=== PATIENT | male | born 1965 | race Hispanic/Latino ===

== ENCOUNTER 2017-08-20 22:47 | Emergency (ER) | payer SELFPAY ==
[~2017-08-20] VITALS: Ht 170.2 cm; Wt 70.0 kg
[2017-08-20] MEDS ORDERED: METFORMIN500 MG PO (23:00)
[2017-08-20 23:32] LABS: HEMATOCRIT 43.5 % (39.0-50.0); HEMOGLOBIN 16.1 g/dl (14.0-18.0); IMMATURE GRANULOCYTES 0.3 % (0.0-1.0); MEAN CELL VOLUME 95.4 fL CALC (80.0-100.0); MEAN CORPUSCULAR HGB 35.3 pG CALC (26.0-32.0); NEUT# 3.16 thou/uL (1.82-7.42); RED BLOOD COUNT 4.56 mill/uL (4.70-6.10)
[2017-08-20 23:45] LABS: ALBUMIN 4.3 g/dL (3.2-5.0); ALKALINE PHOSPHATASE 233 u/l (38-126); AMYLASE 54 u/l (30-110); ANION GAP 15 (6-22 (CALC)); BILIRUBIN, TOTAL 1.6 mg/dL (0.0-1.4); BUN 12 mg/dL (9-20); BUN/CREATININE RATIO 17 (12-20 (CALC)); CARBON DIOXIDE 29 mmol/l (22-30); CHLORIDE 94 mmol/l (95-108); CREATININE 0.7 mg/dL (0.7-1.3); GFR > 60 ML/MIN (>=60 (CALC)); GFR FOR AFR.AMER. > 60 ML/MIN (>=60 (CALC)); LIPASE 230 u/l (23-300); POTASSIUM 3.7 mmol/l (3.5-5.1); SGOT/AST 649 u/l (17-59); SGPT/ALT 157 u/l (21-72); SODIUM 134 mmol/l (137-146); TOTAL PROTEIN 7.6 g/dL (6.3-8.2)
[2017-08-20 23:46] LABS: ETHYL ALCOHOL < 10 mg/dl (0-30)
[2017-08-21 01:41] LABS: URINE BILIRUBIN - DIPSTICK NEGATIVE (NEGATIVE); URINE BLOOD DIPSTICK TRACE-INTACT (NEGATIVE); URINE CLARITY CLEAR; URINE COLOR YELLOW; URINE GLUCOSE - DIPSTICK >=1000 mg/dL (NEGATIVE); URINE KETONE TRACE mg/dL (NEGATIVE); URINE LEUK ESTERASE NEGATIVE (NEGATIVE); URINE NITRITE - DIPSTICK NEGATIVE (Negative); URINE PROTEIN - DIPSTICK 30 mg/dL (NEG-TRACE); URINE SPECIFIC GRAVITY <=1.005; URINE UROBILINOGEN - DIPSTICK 0.2 E.U./dL (0.2)
[2017-08-21 01:44] LABS: BARBITURATES NEGATIVE (NEGATIVE); COCAINE POSITIVE (NEGATIVE); METHADONE NEGATIVE (NEGATIVE); OXCYCODONE NEGATIVE (NEGATIVE); TETRAHYDROCANNABIONOL NEGATIVE (NEGATIVE); TRICYLIC ANTIDEPRESSANTS NEGATIVE (NEGATIVE)
[2017-08-21 01:47] LABS: URINE RBC 0-2 RBC/hpf (0-5); URINE SQUAMOUS EPITHELIAL CELL FEW EPI/hpf (0-FEW)
[2017-08-21 01:48] LABS: URINE BACTERIA FEW hpf; URINE FINE GRAN CAST FEW lpf; URINE TRANSITIONAL EPI. CELLS FEW hpf
[2017-08-21] MEDS ORDERED: PROTONIX40 MG PO (02:27)
[2017-08-21 03:33] VITALS: BP 112/59
== END 2017-08-21 03:33 | disposition home or self-care (01) | DRG 392 ==
LOC: ED 22:47
PROVIDERS: Family Medicine
DX: K29.20 Alcoholic gastritis without bleeding (principal); K70.10 Alcoholic hepatitis without ascites; F14.90 Cocaine use, unspecified, uncomplicated; F17.210 Nicotine dependence, cigarettes, uncomplicated
CPT/HCPCS: S0164

== ENCOUNTER 2018-08-10 17:23 | Inpatient (IN) | payer SELFPAY ==
[~2018-08-10] VITALS: Ht 170.2 cm; Wt 61.7 kg
[~2018-08-10 17:23] MED LIST: METFORMIN500 MG PO; PROTONIX40 MG PO
--- NOTE | 2018-08-10 17:28 | NUR ---
AMBULATORY TO ER ROOM 14, TO BE
--- NOTE | 2018-08-10 17:45 | NUR ---
PT STATES HAVING ABDOMINAL PAIN THAT BEGAN THIS MORNING. VOMITED MULTIPLE TIMES. PT IS AOX4. DENIES ANY C/P, SOB, OR WEAKNESS.
[2018-08-10 17:50] LABS: HEMATOCRIT 42.6 % (39.0-50.0); HEMOGLOBIN 15.9 g/dl (14.0-18.0); IMMATURE GRANULOCYTES 0.5 % (0.0-5.0); MEAN CORPUSCULAR HGB 34.3 pG CALC (26.0-32.0); MEAN CORPUSCULAR HGB CONC 37.3 g/L CALC (32.0-36.0); NEUT# 9.08 thou/uL (1.82-7.42); RED BLOOD COUNT 4.63 mill/uL (4.70-6.10); RED CELL DISTRI WIDTH 11.6 % (11.5-15.5)
[2018-08-10 18:10] LABS: ALBUMIN 4.2 g/dL (3.2-5.0); ALKALINE PHOSPHATASE 313 u/l (38-126); AMYLASE 107 u/l (30-110); BUN 19 mg/dL (9-20); BUN/CREATININE RATIO 22 (12-20 (CALC)); CHLORIDE 90 mmol/l (95-108); CREATININE 0.9 mg/dL (0.7-1.3); GFR > 60 ML/MIN (>=60 (CALC)); GFR FOR AFR.AMER. > 60 ML/MIN (>=60 (CALC)); LIPASE 1071 u/l (23-300); SGOT/AST 336 u/l (17-59); SODIUM 133 mmol/l (137-146); TOTAL PROTEIN 7.4 g/dL (6.3-8.2)
[2018-08-10 18:11] LABS: ANION GAP 26 (6-22 (CALC)); BILIRUBIN, TOTAL 2.5 mg/dL (0.0-1.4); CARBON DIOXIDE 21 mmol/l (22-30)
--- NOTE | 2018-08-10 18:43 | NUR ---
REPORT GIVEN TO EDEL KIMBROUGH
[2018-08-10 19:00] LABS: MYOGLOBIN 55 ng/mL (0 - 121)
--- NOTE | 2018-08-10 21:00 | NUR ---
Admission Note Report Given to: ODALYS Transported by: X Wheelchair Stretcher Transported with: X Nurse Transporter X Patent IV O2 Tail Board Worker
--- NOTE | 2018-08-10 21:05 | NUR ---
PT ARRIVED TO [facility] VIA WHEELCHAIR ACCOMPANIED BY ED TASK NURSE, PT ALERT AND ORIENTED X3, EMIRATI SPEAKING ONLY, PT STATES HE UNDERSTANDS SOME ICELANDIC. ORIENTED TO ROOM AND CALL LIGHT, DISCUSSED POC AND NPO STATUS, PT VERBALIZED UNDERSTANDING. IVF INITIATED. VITALS OBTAINED. PT STATES HE TAKES METFORMIN 850MG BID AND CAPTOPRIL UNSURE OF DOSE, PT RECEIVES MEDS FROM [facility]. RECENTLY RETURNED FROM [facility] FOR A 2 WEEKS AGO. ADMISSION ASSESSMENT COMPLETED. CALL LIGHT IN REACH,CONTINUE TO MONITOR.
--- NOTE | 2018-08-10 21:05 | NUR ---
SPOKE WITH ED NURSE REGARDING LACTIC 7.6, QUESTIONED IF SEPSIS WORKUP WAS COMPLETED. PER ED NURSE EDEL, ER MD IS AWARE AND NO ORDERS FOR ANTIBIOTICS WERE OBTAINED OR BLOOD CULTURES.
--- NOTE | 2018-08-10 21:10 | NUR ---
CONTACTED DR. VEGA TO CLARIFY PAIN LEVELS FOR MEDS.
[2018-08-10 21:18] VITALS: BP 154/94
--- NOTE | 2018-08-10 22:26 | NUR ---
PT RESTING IN BED, STATES HE IS NAUSEAOUS BUT CANT THROW UP. MEDICATED FOR PAIN AND ZOFRAN. ENCOUAGED PT TO CALL FOR ASSISTANCE SINCE HE IS A FALL RISK VERBALIZED UNDERSTANDING. CALL LIGHT IN REACH,CONTINUE TO MONITOR.
[2018-08-10 23:45] VITALS: BP 161/91
--- NOTE | 2018-08-11 03:05 | NUR ---
PT RESTING IN BED, NEW IV BAG INITIATED. PT C/O PAIN. WANTS TO TRY LORTAB INSTEAD. CALL LIGHT IN REACH,CONTINUE TO MONITOR.
--- NOTE | 2018-08-11 04:52 | NUR ---
PT SITTING UP IN CHAIR AT BEDSIDE, C/O NAUSEA AND PAIN, PT MEDICATE CALL LIGHT IN REACH,CONTINUE TO MONITOR.
--- NOTE | 2018-08-11 05:38 | NUR ---
PT BP ELEVATED 167/102 ER MD NOTIFIED, ORDERS RECEIVED.
[2018-08-11 05:55] LABS: HEMATOCRIT 40.7 % (39.0-50.0); MEAN CELL VOLUME 93.1 fL CALC (80.0-100.0); MEAN CORPUSCULAR HGB 34.3 pG CALC (26.0-32.0); MEAN CORPUSCULAR HGB CONC 36.9 g/L CALC (32.0-36.0); RED BLOOD COUNT 4.37 mill/uL (4.70-6.10); RED CELL DISTRI WIDTH 11.5 % (11.5-15.5)
[2018-08-11 06:00] LABS: ALKALINE PHOSPHATASE 254 u/l (38-126); AMYLASE 391 u/l (30-110); ANION GAP 15 (6-22 (CALC)); BUN 17 mg/dL (9-20); BUN/CREATININE RATIO 32 (12-20 (CALC)); CARBON DIOXIDE 25 mmol/l (22-30); CHLORIDE 99 mmol/l (95-108); CREATININE 0.5 mg/dL (0.7-1.3); GFR > 60 ML/MIN (>=60 (CALC)); GFR FOR AFR.AMER. > 60 ML/MIN (>=60 (CALC)); POTASSIUM 3.9 mmol/l (3.5-5.1); SGOT/AST 185 u/l (17-59); SODIUM 135 mmol/l (137-146); TOTAL PROTEIN 6.1 g/dL (6.3-8.2)
[2018-08-11 06:09] LABS: ALBUMIN 3.2 g/dL (3.2-5.0); BILIRUBIN, TOTAL 6.5 mg/dL (0.0-1.4)
[2018-08-11 06:10] LABS: LIPASE 5767 u/l (23-300)
[2018-08-11 06:52] VITALS: BP 162/99
--- NOTE | 2018-08-11 07:00 | NUR ---
SHIFT CHANGE REPORT, PT AWAKE ALERT AND ORIENTED, C/O ABD PAIN AND STATES ITS TOLERABLE AND DOES NOT WANT ANY PAIN MED AT THIS TIME, IVF INFUSING, REQUESTING ORAL INTAKE AND ADVISED MD WILL ADDRESS NEEDS LATER, ALSO INFORMED OF REASON HE HAS NPO STATUS AND STATED UNDERSTANDING, CALL RINCON IN REACH,WILL CONTINUE TO MONITOR.
[2018-08-11 09:51] VITALS: BP 153/99
--- NOTE | 2018-08-11 11:00 | NUR ---
DR DIALLO ROUNDED, DISCUSSED PLAN OF CARE AND WROTE ORDERS. TELE MONOTOR ORDERED AND PLACED, PT INFORMED/EDUCATED ON NEED FOR MONITOR AND STATED UNDERSTANDING VIA SENIOR ELECTRONICS DESIGN ENGINEER. ALL NEEDS ADDRESSED.
[2018-08-11 12:10] VITALS: BP 173/95
[2018-08-11 15:46] VITALS: BP 126/83
[2018-08-11 16:19] LABS: URINE BLOOD DIPSTICK NEGATIVE (NEGATIVE); URINE GLUCOSE - DIPSTICK 500 mg/dL (NEGATIVE); URINE KETONE >=80 mg/dL (NEGATIVE); URINE LEUK ESTERASE NEGATIVE (NEGATIVE); URINE PROTEIN - DIPSTICK 30 mg/dL (NEG-TRACE); URINE SPECIFIC GRAVITY 1.015
[2018-08-11 16:39] LABS: URINE BILIRUBIN - DIPSTICK LARGE (NEGATIVE)
[2018-08-11 16:40] LABS: URINE COLOR ORANGE; URINE NITRITE - DIPSTICK NEGATIVE (Negative); URINE SQUAMOUS EPITHELIAL CELL FEW EPI/hpf (0-FEW)
[2018-08-11 17:07] LABS: BARBITURATES NEGATIVE (NEGATIVE); COCAINE NEGATIVE (NEGATIVE); METHADONE NEGATIVE (NEGATIVE); OXCYCODONE NEGATIVE (NEGATIVE); TETRAHYDROCANNABIONOL NEGATIVE (NEGATIVE); TRICYLIC ANTIDEPRESSANTS NEGATIVE (NEGATIVE)
[2018-08-11 19:00] VITALS: BP 153/92
--- NOTE | 2018-08-11 19:31 | NUR ---
REPORT FROM AURORA KIMBROUGH. PT SITTING UP IN BED. ALERT AND ORIENTED. NO S/S OF DISTRESS NOTED. PT DENIES ANY PAIN OR DISCOMFORT. RESPIRATIONS EVEN AND UNLABORED. PT REMAINS NPO AT THIS TIME. BRIGHT ORANGE URINE NOTED IN URINAL. IV FLUIDS INFUSING WITHOUT DIFFICULTY. IV SITE APPEARS HEALTHY. DISCUSSED POC. PT VERBALIZED UNDERSTANDING. ENCOURAGED PT TO CALL FOR NEEDS. CALL LIGHT WITHIN REACH. WILL CONTINUE TO MONITOR.
--- NOTE | 2018-08-11 23:45 | NUR ---
STARTED PT IV FLUIDS PER EMAR ORDERS
[2018-08-12] VITALS (7 sets, daily range): BP systolic 131–171; BP diastolic 83–93
--- NOTE | 2018-08-12 04:18 | NUR ---
PT RESTING IN BED WITH EYES CLOSED. NO DISTRESS NOTED. WAKES EASILY. VOICES NO CONCERNS. IV FLUIDS INFUSING WITHOUT DIFFICULTY. CALL LIGHT WITHIN REACH. WILL CONTINUE TO MONITOR.
[2018-08-12 05:58] LABS: HEMATOCRIT 35.9 % (39.0-50.0); IMMATURE GRANULOCYTES 0.5 % (0.0-5.0); MEAN CELL VOLUME 95.5 fL CALC (80.0-100.0); MEAN CORPUSCULAR HGB 34.6 pG CALC (26.0-32.0); MEAN CORPUSCULAR HGB CONC 36.2 g/L CALC (32.0-36.0); NEUT# 6.47 thou/uL (1.82-7.42); RED BLOOD COUNT 3.76 mill/uL (4.70-6.10); RED CELL DISTRI WIDTH 11.7 % (11.5-15.5)
[2018-08-12 06:09] LABS: ALBUMIN 2.6 g/dL (3.2-5.0); ALKALINE PHOSPHATASE 164 u/l (38-126); AMYLASE 294 u/l (30-110); ANION GAP 13 (6-22 (CALC)); BUN 11 mg/dL (9-20); BUN/CREATININE RATIO 22 (12-20 (CALC)); CARBON DIOXIDE 26 mmol/l (22-30); CHLORIDE 100 mmol/l (95-108); CREATININE 0.5 mg/dL (0.7-1.3); GFR > 60 ML/MIN (>=60 (CALC)); GFR FOR AFR.AMER. > 60 ML/MIN (>=60 (CALC)); LIPASE 1883 u/l (23-300); MAGNESIUM 1.6 mg/dL (1.6-2.3); POTASSIUM 3.6 mmol/l (3.5-5.1); SGOT/AST 81 u/l (17-59); SODIUM 135 mmol/l (137-146); TOTAL PROTEIN 5.2 g/dL (6.3-8.2)
[2018-08-12 06:16] LABS: BILIRUBIN, TOTAL 3.2 mg/dL (0.0-1.4)
--- NOTE | 2018-08-12 06:33 | NUR ---
PT MEDICATE ORDERS SCHEDULED FOR BP. WILL CONINUE TO MONITOR.
--- NOTE | 2018-08-12 07:18 | NUR ---
SHIFT CHANGE REPORT, PT AWAKE ALERT AND ORIENTED, ASSISTED TO RECLINER BY NSG STAFF, O2 @ 2L VIA NC IN PLACE, TELE MONITOR IN PLACE, NO C/O DISCOMFORT, CALL RINCON IN REACH.
--- NOTE | 2018-08-12 07:58 | NUR ---
SHIFT CHANGE REPORT, PT AWAKE ALERT AND ORIENTED RESTING IN BED, STILL C/O MILD ABD DISCOMFORT, IVF INFUSING, TELE MOITOR IN PLACE, CALL RINCON IN REACH.
--- NOTE | 2018-08-12 11:46 | NUR ---
SITTING UP IN BED AT THIS TIME, DENIES PAIN/DISCOMFORT, ALL NEEDS ADDRESSED.
--- NOTE | 2018-08-12 13:06 | NUR ---
DR DIALLO ROUNDED AND DISCUSSED PLAN OF CARE, PT STATED UNDERSTANDING, ORDERS WRITTEN.
--- NOTE | 2018-08-12 19:16 | NUR ---
REPORT RECEIVED FROM KAYLAN SIMON. PT RESTING IN BED, ALERT AND ORIENTED, DENIES ANY PAIN OR DISCOMFORT AT THIS TIME. SAFETY PRECAUTION IN PLACE, WILL CONTINUE TO MONITOR.
--- NOTE | 2018-08-12 20:10 | NUR ---
PT RESTING IN BED, ALERT AND ORIENTED. RESPIRATIONS EVEN AND UNLABORED ON RA. LUNGS SOUND CLEAR. #22 LAC PATENT AND APPEARS HEALTHY. TELE IN PLACE. PEDAL PULSES STRONG. PT DENIES ANY PAIN OR DISCOMFORT AT THIS TIME. CALL RINCON WITHIN REACH. WILL CONTINUE TO MONITOR.
--- NOTE | 2018-08-13 | NUR ---
PT RETURNING TO BED FROM RESTROOM WITH A STEADY GATE, NO S/S OF DISTRESS. WILL CONTINUE TO MONITOR.
[2018-08-13 03:51] VITALS: BP 159/87
--- NOTE | 2018-08-13 04:40 | NUR ---
PT RESTING IN BED. NO S/S OF DISTRESS. WILL CONTINUE TO MONITOR.
[2018-08-13 05:01] LABS: HEMATOCRIT 34.3 % (39.0-50.0); HEMOGLOBIN 12.4 g/dl (14.0-18.0); IMMATURE GRANULOCYTES 0.5 % (0.0-5.0); MEAN CELL VOLUME 95.3 fL CALC (80.0-100.0); MEAN CORPUSCULAR HGB 34.4 pG CALC (26.0-32.0); MEAN CORPUSCULAR HGB CONC 36.2 g/L CALC (32.0-36.0); NEUT# 3.53 thou/uL (1.82-7.42); RED BLOOD COUNT 3.6 mill/uL (4.70-6.10); RED CELL DISTRI WIDTH 11.4 % (11.5-15.5)
[2018-08-13 05:16] LABS: ALBUMIN 2.9 g/dL (3.2-5.0); AMYLASE 133 u/l (30-110); ANION GAP 12 (6-22 (CALC)); BILIRUBIN, TOTAL 2.6 mg/dL (0.0-1.4); BUN 8 mg/dL (9-20); BUN/CREATININE RATIO 18 (12-20 (CALC)); CARBON DIOXIDE 28 mmol/l (22-30); CHLORIDE 97 mmol/l (95-108); CREATININE 0.4 mg/dL (0.7-1.3); GFR > 60 ML/MIN (>=60 (CALC)); GFR FOR AFR.AMER. > 60 ML/MIN (>=60 (CALC)); LIPASE 1923 u/l (23-300); MAGNESIUM 1.6 mg/dL (1.6-2.3); POTASSIUM 3.2 mmol/l (3.5-5.1); SGOT/AST 74 u/l (17-59); SODIUM 134 mmol/l (137-146); TOTAL PROTEIN 5.8 g/dL (6.3-8.2)
[2018-08-13 05:24] LABS: ALKALINE PHOSPHATASE 248 u/l (38-126)
--- NOTE | 2018-08-13 07:00 | NUR ---
SHIFT CHANGE REPORT, PT AWAKE ALERT AND ORIENTED AMBULATING IN ROOM, STATES HE FEELS GOOD NOW AND READY TO GO HOME, ALL NEEDS ADDRESSED, CALL RINCON IN REACH.
[2018-08-13 07:48] VITALS: BP 156/96
[2018-08-13 10:00] VITALS: BP 156/96
[2018-08-13] MEDS ORDERED: LISINOPRIL20 M1 PO (11:54)
--- NOTE | 2018-08-13 12:57 | NUR ---
Discharge instructions given. Patient verbalizes understanding of same. Discharged in good condition via Ambulatory to Home with *Other. All belongings sent with pt.
== END 2018-08-13 12:50 | disposition home or self-care (01) | DRG 440 ==
LOC: ED 17:23 → ED-I 19:20 → ED 20:07 → MS2 20:08
PROVIDERS: Emergency Medicine; Family Medicine; Internal Medicine Nephrology; ADMIT Internal Medicine; ATTEND Internal Medicine
DX: K85.20 Alcohol induced acute pancreatitis without necrosis or infection (principal); K86.0 Alcohol-induced chronic pancreatitis; F10.129 Alcohol abuse with intoxication, unspecified; E86.0 Dehydration; K70.10 Alcoholic hepatitis without ascites; E11.9 Type 2 diabetes mellitus without complications; I10 Essential (primary) hypertension; F17.200 Nicotine dependence, unspecified, uncomplicated; Y90.3 Blood alcohol level of 60-79 mg/100 ml; Z79.84 Long term (current) use of oral hypoglycemic drugs
CPT/HCPCS: Q9967; S0164

== ENCOUNTER 2018-08-27 01:46 | Inpatient (IN) | payer SELFPAY ==
[~2018-08-27] VITALS: Ht 170.2 cm; Wt 65.9 kg
[~2018-08-27 01:46] MED LIST changes: +LISINOPRIL20 M1 PO
[2018-08-27 02:20] LABS: HEMATOCRIT 35.6 % (39.0-50.0); HEMOGLOBIN 12.7 g/dl (14.0-18.0); IMMATURE GRANULOCYTES 0.4 % (0.0-5.0); MEAN CORPUSCULAR HGB 34.2 pG CALC (26.0-32.0); MEAN CORPUSCULAR HGB CONC 35.7 g/L CALC (32.0-36.0); NEUT# 8.41 thou/uL (1.82-7.42); RED BLOOD COUNT 3.71 mill/uL (4.70-6.10); RED CELL DISTRI WIDTH 11.9 % (11.5-15.5)
[2018-08-27 02:40] LABS: ALBUMIN 4.3 g/dL (3.2-5.0); ALKALINE PHOSPHATASE 525 u/l (38-126); AMYLASE 88 u/l (30-110); ANION GAP 16 (6-22 (CALC)); BILIRUBIN, TOTAL 2.5 mg/dL (0.0-1.4); BUN 11 mg/dL (9-20); BUN/CREATININE RATIO 20 (12-20 (CALC)); CARBON DIOXIDE 28 mmol/l (22-30); CHLORIDE 98 mmol/l (95-108); CREATININE 0.6 mg/dL (0.7-1.3); GFR > 60 ML/MIN (>=60 (CALC)); GFR FOR AFR.AMER. > 60 ML/MIN (>=60 (CALC)); LIPASE 494 u/l (23-300); POTASSIUM 3.4 mmol/l (3.5-5.1); SGOT/AST 350 u/l (17-59); SODIUM 138 mmol/l (137-146); TOTAL PROTEIN 7.4 g/dL (6.3-8.2)
[2018-08-27 02:52] LABS: MYOGLOBIN 15 ng/mL (0 - 121)
[2018-08-27 04:15] LABS: URINE BILIRUBIN - DIPSTICK NEGATIVE (NEGATIVE); URINE BLOOD DIPSTICK NEGATIVE (NEGATIVE); URINE COLOR YELLOW; URINE GLUCOSE - DIPSTICK >=1000 mg/dL (NEGATIVE); URINE KETONE NEGATIVE (NEGATIVE); URINE LEUK ESTERASE NEGATIVE (NEGATIVE); URINE NITRITE - DIPSTICK NEGATIVE (Negative); URINE PH 7.5 (4.5-8.0); URINE PROTEIN - DIPSTICK NEGATIVE (NEG-TRACE); URINE SPECIFIC GRAVITY 1.015; URINE UROBILINOGEN - DIPSTICK 0.2 E.U./dL (0.2)
[2018-08-27 04:18] LABS: BARBITURATES NEGATIVE (NEGATIVE); COCAINE POSITIVE (NEGATIVE); METHADONE NEGATIVE (NEGATIVE); OXCYCODONE NEGATIVE (NEGATIVE); TETRAHYDROCANNABIONOL NEGATIVE (NEGATIVE); TRICYLIC ANTIDEPRESSANTS NEGATIVE (NEGATIVE)
[2018-08-27 07:21] VITALS: BP 125/77
[2018-08-27 10:33] VITALS: BP 99/59
[2018-08-27 14:33] LABS: ALKALINE PHOSPHATASE 275 u/l (38-126); BUN 12 mg/dL (9-20); BUN/CREATININE RATIO 25 (12-20 (CALC)); CHLORIDE 109 mmol/l (95-108); CREATININE 0.5 mg/dL (0.7-1.3); GFR > 60 ML/MIN (>=60 (CALC)); GFR FOR AFR.AMER. > 60 ML/MIN (>=60 (CALC)); POTASSIUM 3.7 mmol/l (3.5-5.1); SGOT/AST 211 u/l (17-59); SODIUM 139 mmol/l (137-146)
[2018-08-27 14:35] LABS: ALBUMIN 2.7 g/dL (3.2-5.0); ANION GAP 12 (6-22 (CALC)); BILIRUBIN, TOTAL 3.8 mg/dL (0.0-1.4); CARBON DIOXIDE 22 mmol/l (22-30); TOTAL PROTEIN 5.1 g/dL (6.3-8.2)
== END 2018-08-27 15:05 | disposition home or self-care (01) | DRG 439 ==
LOC: ED 01:46 → ED-I 06:07 → ED 06:25 → MS2 06:26
PROVIDERS: Emergency Medicine; ADMIT Internal Medicine; ATTEND Internal Medicine
DX: K85.20 Alcohol induced acute pancreatitis without necrosis or infection (principal); E87.2 Acidosis; K86.0 Alcohol-induced chronic pancreatitis; E11.65 Type 2 diabetes mellitus with hyperglycemia; I10 Essential (primary) hypertension; F17.210 Nicotine dependence, cigarettes, uncomplicated; F14.10 Cocaine abuse, uncomplicated; F10.10 Alcohol abuse, uncomplicated; F11.10 Opioid abuse, uncomplicated; Z79.84 Long term (current) use of oral hypoglycemic drugs; Z91.19 Patient's noncompliance with other medical treatment and regimen
CPT/HCPCS: Q9967

== ENCOUNTER 2020-05-03 09:46 | Emergency (ER) | payer SELFPAY ==
[2020-05-03] MEDS ORDERED: KEFLEX500 M1 PO (09:59)
[2020-05-03] MEDS ORDERED: GENTAMICIN SULF5 ML OS (09:59)
[2020-05-03 10:06] VITALS: BP 177/97
== END 2020-05-03 10:13 | disposition home or self-care (01) | DRG 125 ==
LOC: ED 09:46
DX: H10.9 Unspecified conjunctivitis (principal); H00.013 Hordeolum externum right eye, unspecified eyelid; I10 Essential (primary) hypertension; E11.9 Type 2 diabetes mellitus without complications; F17.200 Nicotine dependence, unspecified, uncomplicated; Z79.84 Long term (current) use of oral hypoglycemic drugs